=== PATIENT | male | born 1940 | race African-American/Black ===

== ENCOUNTER 2017-09-20 17:25 | Emergency (ER) | payer OTHER ==
[~2017-09-20] VITALS: Ht 177.8 cm; Wt 82.0 kg
[2017-09-20 20:34] LABS: BASOPHILS % 0.4 % (0.0-2.0); EOSINOPHILS % 9.3 % (0.0-5.0); HEMATOCRIT. 34.2 % (42.0-52.0); HEMOGLOBIN. 11.4 g/dL (14.0-18.0); LYMPHOCYTES % 13.6 % (20.0-50.0); MEAN CORPUSCULAR HEMOGLOBIN 27.4 pg (28.0-32.0); MEAN CORPUSCULAR VOLUME 81.9 fL (80.0-94.0); MEAN PLATELET VOLUME 7.8 fl (7.4-10.4); MONOCYTES % 10.1 % (2.0-8.0); NEUTROPHILS % 66.6 % (40.0-76.0); PLATELET 285 x1000/uL (130-400); RED BLOOD CELL COUNT 4.17 mill/uL (4.7-6.1); RED CELL DISTRIBUTION WIDTH 14.5 % (11.6-14.6)
[2017-09-20 20:39] LABS: CHLORIDE 106 mEq/L (98-107)
[2017-09-20 20:44] LABS: ETHANOL BLOOD < 10 mg/dL
[2017-09-20] MEDS ORDERED: POTASSIUM CHLORIDE 20MEQ TABLET SR PO ONE (22:30)
[2017-09-21 01:09] VITALS: BP 112/73
== END 2017-09-21 02:22 | disposition short-term general hospital (02) ==
LOC: ER 21:51 → CANBEDREQ 09-21 04:19
DX: G93.40 Encephalopathy, unspecified (principal); E87.6 Hypokalemia; F03.90 Unspecified dementia, unspecified severity, without behavioral disturbance, psychotic disturbance, mood disturbance, and anxiety; I10 Essential (primary) hypertension
CPT/HCPCS: 36415; 70450; 71045; 80053; 80307; 80329; 84484; 85025; 93005; 99285; G0482